=== PATIENT | male | born 1965 | race Caucasian/White ===

== ENCOUNTER 2022-08-25 23:20 | Inpatient (IN) | payer MEDICAID ==
[~2022-08-25] VITALS: Ht 182.9 cm; Wt 90.3 kg
[2022-08-25 23:30] VITALS: BP_SYST 133
[2022-08-25] MEDS ORDERED: ASPIRIN 81 MG TAB.CHEW PO ONE (23:45)
[2022-08-25] MEDS ORDERED: ACETAMINOPHEN 500 MG TABLET PO ONE (23:45)
[2022-08-26] VITALS (7 sets, daily range): BP systolic 124–131
[2022-08-26 00:12] LABS: BASOPHILS % (AUTO) 0.2 % (0.0-2.0); EOSINOPHILS # (AUTO) 0.1 K/uL (0.0-0.4); HEMATOCRIT 38.3 % (36-54); HEMOGLOBIN 12.9 g/dL (14.0-18.0); LYMPHOCYTES # (AUTO) 1.6 K/uL (1.0-5.5); LYMPHOCYTES % (AUTO) 26.7 % (20.5-51.5); MEAN CORPUSCULAR HEMOGLOBIN 30 pg (27-31); MEAN CORPUSCULAR HGB CONC 34 % (32-36); MEAN CORPUSCULAR VOLUME 89 fL (79.0-98.0); MONOCYTES # (AUTO) 0.4 K/uL (0.0-1.0); MONOCYTES % (AUTO) 6.1 % (1.7-9.3); NEUTROPHILS # (AUTO) 3.9 K/uL (1.8-7.7); PLATELET COUNT (AUTO) 116 K/uL (130-430); RED BLOOD CELL COUNT(AUTO) 4.29 MIL/uL (4.2-6.2); RED CELL DISTRIBUTION WIDTH 13.9 % (9.0-15.0); WHITE BLOOD COUNT (AUTO) 5.9 K/uL (4.8-10.8)
[2022-08-26 00:25] LABS: ANION GAP 10 (5-15); CHLORIDE 106 mmol/L (98-107); CREATININE 0.95 mg/dL (0.55-1.30); GFR AFRICAN AMERICAN 105 mL/min (>90); GLUCOSE 122 mg/dL (70-99); UREA NITROGEN, BLOOD 23 mg/dL (8-21)
[2022-08-26 00:32] LABS: ALANINE AMINOTRANSFERASE 8 U/L (12-78); ALBUMIN 3.4 g/dL (3.4-4.8); ASPARTATE AMINOTRANSFERASE 16 U/L (10-37); TOTAL BILIRUBIN 0.3 mg/dL (0.0-1.0)
[2022-08-26] MEDS: D5/0.45 NS 1,000 ML IV SCH ×2 (06:09→16:15)
[2022-08-26 15:07] LABS: CHOLESTEROL 174 mg/dL (<200); HDL CHOLESTEROL 36 mg/dL (>45); TRIGLYCERIDES 122 mg/dL (30-150)
== END 2022-08-26 21:50 | disposition home or self-care (01) | DRG 207 ==
LOC: SED 23:20 → STU 08-26 03:02
PROVIDERS: ADMIT Specialist; ATTEND Specialist
DX: I95.2 Hypotension due to drugs (principal); E86.0 Dehydration; T46.7X5A Adverse effect of peripheral vasodilators, initial encounter; Y92.89 Other specified places as the place of occurrence of the external cause
CPT/HCPCS: 36415; 71045; 80053; 80061; 83880; 84484; 85025; 93005; 93306; 96360; 99291; G0378

== ENCOUNTER 2023-09-01 06:37 | Day surgery (SDC) | payer MEDICAID ==
[~2023-09-01] VITALS: Ht 182.9 cm; Wt 90.7 kg
[2023-09-01] MEDS ORDERED: MEPERIDINE 100 MG INJ. 100 MG/ML VIAL ONE (07:13)
[2023-09-01] MEDS ORDERED: MIDAZOLAM HCL 5 MG/5 ML VIAL ONE (07:14)
[2023-09-01] MEDS ORDERED: SIMETHICONE 40 MG/0.6 ML ML ONE (07:15)
[2023-09-01 09:00] VITALS: O2SAT 99
[2023-09-01 12:39] VITALS: BP_SYST 123; PULSE 74; RESP 14
== END 2023-09-01 10:00 | disposition home or self-care (01) ==
LOC: SDS 06:37 → SMU 06:38 → SDS 10:00
PROVIDERS: ATTEND Internal Medicine
DX: K59.09 Other constipation (principal); D12.2 Benign neoplasm of ascending colon; Z86.010 Personal history of colon polyps
CPT/HCPCS: 45380; 45385; 99152; 88305; G0378; J2250; J2175